=== PATIENT | male | born 1940 | race American Indian/Alaskan Native ===

== ENCOUNTER 2021-02-17 11:26 | Emergency (ER) | payer MEDICARE ==
--- NOTE | 2021-02-17 11:39 | Emergency Department Report ---
ED General Adult HPI - General Chief complaint: Fall Stated complaint: FALL/STANDING POSITION PUI?: No Time Seen by Provider: 02/17/21 11:35 Source: patient, EMS ( EMS documentation not available at time of chart dictatio n ), RN notes reviewed Mode of arrival: Stretcher Limitations: No Limitations - History of Present Illness Initial comments: The patient is a pleasant 81-year-old gentleman. This patient has a past medical history of high cholesterol, congestive heart failure, hypertension, chronic respiratory failure, lives at home with his family, and has home oxygen. The patient is brought to the hospital by emergency medical services for evaluation of left posterior scapular pain, and left lateral rib pain after mechanical fall. Patient reports that he typically ambulates with a walker. He reports that he was in the shower today, slipped, and fell onto his left lateral thorax, and left posterior scapula. He did not hit his head or neck. He complains of sharp pain in his left lateral chest wall/rib cage, and left posterior scapula. He denies headache, neck pain, vomiting, diaphoresis, abdominal pain, extremity weakness or numbness, urinary symptoms, diarrhea, new/different shortness of breath. The patient states the pain increases with palpation and range of motion. It decreases with rest. It decreases with acetaminophen, administered here in the emergency room. -: Sudden Location: back (Left posterior scapula. Left lateral rib cage) Radiation: non-radiation Consistency: constant Improves with: rest Worsens with: movement Associated Symptoms: denies other symptoms - Related Data Previous Rx's Medication Instructions Recorded Last Taken Type Acetaminophen [Non-Aspirin Extra 500 mg PO Q6HR PRN #30 tablet 02/17/21 Unknown Rx Strength] Allergies Allergy/AdvReac Type Severity Reaction Status Date / Time No Known Allergies Allergy Unverified 02/17/21 11:31 ED Review of Systems ROS: Stated complaint: FALL/STANDING POSITION Other details as noted in HPI Constitutional: denies: fever Eyes: denies: eye discharge ENT: denies: epistaxis Respiratory: shortness of breath (Chronic shortness of breath). denies: cough Cardiovascular: denies: chest pain (No anterior chest pain) Gastrointestinal: denies: abdominal pain Genitourinary: denies: dysuria Musculoskeletal: back pain, arthralgia, myalgia Neurological: denies: headache, weakness (Denies weakness) ED Past Medical Hx - Past Medical History Previous Medical History?: Yes Hx Congestive Heart Failure: Yes - Medications Home Medications: Home Medications Medication Instructions Recorded Confirmed Last Taken Type Acetaminophen [Non-Aspirin Extra 500 mg PO Q6HR PRN #30 tablet 02/17/21 Unknown Rx Strength] ED Physical Exam - General Limitations: No Limitations General appearance: alert, in no apparent distress - Head Head exam: Present: atraumatic, normocephalic - Eye Eye exam: Present: normal appearance, EOMI. Absent: nystagmus - ENT ENT exam: Present: normal exam, normal orophraynx, mucous membranes moist, normal external ear exam - Neck Neck exam: Present: normal inspection, full ROM. Absent: tenderness, meningismus - Respiratory Respiratory exam: Present: normal lung sounds bilaterally, chest wall tenderness (There is left lateral thoracic and rib cage tenderness). Absent: respiratory distress, wheezes, rales, rhonchi, stridor - Cardiovascular Cardiovascular Exam: Present: regular rate, normal rhythm, normal heart sounds. Absent: bradycardia, tachycardia, irregular rhythm, systolic murmur, diastolic m urmur, rubs, gallop - GI/Abdominal GI/Abdominal exam: Present: soft. Absent: distended, tenderness, guarding, rebound, rigid, pulsatile mass - Rectal Rectal exam: Present: deferred - Extremities Exam Extremities exam: Present: normal inspection (Left posterior scapular tenderness), full ROM, other (2+ pulses noted in the bilateral upper and lower extremities. There is no palpable cord. negative Homans sign. Muscular compartments are soft. The pelvis is stable.). Absent: pedal edema, calf tenderness - Back Exam Back exam: Present: normal inspection, tenderness (Left posterior scapular tenderness). Absent: CVA tenderness (R), paraspinal tenderness, vertebral tenderness - Neurological Exam Neurological exam: Present: alert, oriented X3, other (No facial droop. Tongue midline. Extraocular movements intact bilaterally. Facial sensation intact to light touch in V1, V2, V3 distribution bilaterally. 5 and a 5 strength in 4 extremities. Sensation intact to light touch in 4 extremities.). Absent: motor sensory deficit - Psychiatric Psychiatric exam: Present: normal affect, normal mood - Skin Skin exam: Present: warm, dry, intact, normal color. Absent: rash ED Course Vital Signs 02/17/21 02/17/21 02/17/21 11:28 12:04 13:44 Temperature 98.3 F Pulse Rate 63 52 L Respiratory 16 12 12 Rate Blood Pressure 136/60 124/53 [Right] O2 Sat by Pulse 100 100 Oximetry ED Medical Decision Making - Lab Data Vital Signs 02/17/21 02/17/21 02/17/21 11:28 12:04 13:44 Temperature 98.3 F Pulse Rate 63 52 L Respiratory 16 12 12 Rate Blood Pressure 136/60 124/53 [Right] O2 Sat by Pulse 100 100 Oximetry Lab Results 02/17/21 Range/Units Unknown Urine Color Yellow (Yellow) Urine Turbidity Clear (Clear) Urine pH 6.0 (5.0-7.0) Ur Specific Jacobson 1.010 (1.003-1.030) Urine Protein 30 mg/dl (Negative) mg/dL Urine Glucose (UA) Neg (Negative) mg/dL Urine Ketones Neg (Negative) mg/dL Urine Blood Sm (Negative) Urine Nitrite Neg (Negative) Urine Bilirubin Neg (Negative) Urine Urobilinogen < 2.0 (<2.0) mg/dL Ur Leukocyte Esterase Neg (Negative) Urine WBC (Auto) 1.0 (0.0-6.0) /HPF Urine RBC (Auto) 3.0 (0.0-6.0) /HPF U Epithel Cells (Auto) < 1.0 (0-13.0) /HPF Urine Mucus Few /HPF - Radiology Data Radiology results: pending, report reviewed, image reviewed CT OF THE CHEST WITHOUT CONTRAST INDICATION / CLINICAL INFORMATION: Fall with left rib and scapular pain. TECHNIQUE: All CT scans at this location are performed using CT dose reduction for ALARA by means of automated exposure control. COMPARISON: None available. FINDINGS: There is a small left pleural effusion. There is mild compressive atelectasis/consolidation in the adjacent left lower lobe. Minimal dependent atelectasis is present in the right posterior lung base. There is minimal pericardial effusion. The tracheobronchial tree is normal. There is no evidence of pneumothorax. There is no evidence of adenopathy. The visualized upper abdomen is unremarkable There is an acute fracture of the left seventh rib posterolaterally which is mildly displaced. The scapula is intact. IMPRESSION: 1. Acute, mildly displaced fracture of the left seventh rib. 2. Small left pleural effusion with mild associated compressive atelectasis/consolidation in the adjacent left lower lobe. 3. No pneumothorax. Signer Name: Dexter Juárez MD Signed: 02/17/2021 11:42 AM Workstation Name: [id number] CT head/brain wo con INDICATION / CLINICAL INFORMATION: 81 years Male; fall from standing, de-acceleration injury. TECHNIQUE: Routine CT head without contrast. All CT scans at this location are performed using CT dose reduction for ALARA by means of automated exposure control. COMPARISON: None. FINDINGS: BRAIN / INTRACRANIAL CONTENTS: No acute hemorrhage, mass effect, midline shift, hydrocephalus, or acute, large territorial infarct. Mild to moderate, diffuse cerebral and mild cerebellar atrophy. Moderate to marked degree of hippocampal atrophy suggested bilaterally. There are moderate to marked, confluent areas of decreased attenuation in the white matter of the cerebral hemispheres. These are nonspecific findings and may be related to microangiopathy (hypertension, diabetes, atherosclerosis), given the patient's age. It might be difficult to evaluate for small areas of ischemia without diffusion imaging by MRI. CRANIOCERVICAL JUNCTION: No significant abnormality. ORBITS: No significant abnormality of visualized orbits. SINUSES / MASTOIDS: Visualized paranasal sinuses and mastoid air cells are essentially clear. ADDITIONAL FINDINGS: Atherosclerotic disease is seen in the anterior circulation. IMPRESSION: 1. No focal mass, hemorrhage, hydrocephalus, or acute, large territorial infarct. Signer Name: Rony Ayers MD, III Signed: 02/17/2021 11:50 AM Workstation Name: [id number] - Medical Decision Making Differential diagnosis, including but not limited to: Mechanical slip and fall, scapula pain, strain, fracture, contusion, rib pain, strain, fracture, contusion, pulmonary contusion/pneumothorax, intracranial injury Assessment and plan: 81-year-old gentleman, who was afebrile, with reassuring vital signs, clinically sober, with a GCS of 15, who was in the shower, and fell onto his left side, hitting his left scapula, and left-sided rib cage. He is tender in the left scapular and left rib cage. Range of motion intact in the extremities, and the pelvis is stable. Has point tenderness in the left lateral rib cage, left posterior scapula. Given advanced age, D acceleration component, osteopenia, noncontrast CT scan of the brain is obtained, and shows no acute intracranial bleeding or findings. A noncontrast CT scan of the chest demonstrates an isolated left-sided seventh rib fracture. No other obvious injuries or fractures are identified. Do not clinically suspect pneumonia. The patient has home oxygen, and he is not significantly hypoxic at this time. Discussed radiology findings with interpreting radiologist. This is most likely compressive atelectasis. We do not clinically suspect pneumonia. This is very unlikely to be a pulmonary contusion based off her radiographic findings, and overall clinical appearance, as well as clinical history. Patient felt improved after Tylenol/acetaminophen. He is resting comfortably at this time, and eating a peanut butter and jelly sandwich. He is stating that he would like to be discharged, and go home. Have ordered incentive spirometry for this patient. He lives at home with family and he reports that he is reliable to return to the ER if he clinically deteriorates. Return precautions are reviewed. All questions answered. Critical care attestation.: If time is entered above; I have spent that time in minutes in the direct care of this critically ill patient, excluding procedure time. ED Disposition Clinical Impression: Pain of left scapula, Fracture of ribs, seven, Left-sided chest wall pain, Fall, Compressive atelectasis Disposition: 01 HOME / SELF CARE / HOMELESS Is pt being admited?: No Condition: Stable Instructions: Atelectasis, Adult, Rib Fracture, [id number], How to Use an Incentive Spirometer Additional Instructions: Pain typically gets worse before gets better after a mechanical fall. Patient had a CT scan of the brain today, which showed no acute intracranial injury. Patient had a CT scan of the chest today which demonstrated a left-sided rib fracture, and very small left-sided pleural effusion and/or compressive left- sided atelectasis (collapsed lung). Please take the pain medication as needed and directed. Please use the incentive spirometer as directed. Follow-up with a primary care doctor in 2 to 3 days. Please return to the emergency room right away with new pain, worsened pain, migration of pain, projectile vomiting, change in mental status, confusion, inability to tolerate liquid feeds, new, worsened or different symptoms not present on the initial emergency room evaluation. Please have your primary care doctor contact the medical records department to obtain copies of laboratory studies, radiology studies, and follow-up on nonemergent incidental findings. Referrals: DR EMPERATRIZ TAN [Other] - 3-5 Days
[2021-02-17] MEDS ORDERED: ACETAMINOPHEN 325 MG TAB PO ONE (11:47)
[2021-02-17 12:20] LABS: Bilirubin,Urine NEG (Negative); Blood,Urine SM (Negative); Color,Urine Yellow (Yellow); Mucus,Urine FEW /HPF; Urobilinogen,Urine < 2.0 mg/dL (<2.0)
--- NOTE | 2021-02-17 12:46 | Cat Scan Report ---
CT OF THE CHEST WITHOUT CONTRAST INDICATION / CLINICAL INFORMATION: Fall with left rib and scapular pain. TECHNIQUE: All CT scans at this location are performed using CT dose reduction for ALARA by means of automated exposure control. COMPARISON: None available. FINDINGS: There is a small left pleural effusion. There is mild compressive atelectasis/consolidation in the ad jacent left lower lobe. Minimal dependent atelectasis is present in the right posterior lung base. Th ere is minimal pericardial effusion. The tracheobronchial tree is normal. There is no evidence of pne umothorax. There is no evidence of adenopathy. The visualized upper abdomen is unremarkable There is an acute fracture of the left seventh rib posterolaterally which is mildly displaced. The sc apula is intact. IMPRESSION: 1. Acute, mildly displaced fracture of the left seventh rib. 2. Small left pleural effusion with mild associated compressive atelectasis/consolidation in the paige cent left lower lobe. 3. No pneumothorax. Signer Name: Dexter Juárez MD Signed: 02/17/2021 12:42 PM Workstation Name: [id number]
--- NOTE | 2021-02-17 12:54 | Cat Scan Report ---
CT head/brain wo con INDICATION / CLINICAL INFORMATION: 81 years Male; fall from standing, de-acceleration injury. TECHNIQUE: Routine CT head without contrast. All CT scans at this location are performed using CT dos e reduction for ALARA by means of automated exposure control. COMPARISON: None. FINDINGS: BRAIN / INTRACRANIAL CONTENTS: No acute hemorrhage, mass effect, midline shift, hydrocephalus, or acu te, large territorial infarct. Mild to moderate, diffuse cerebral and mild cerebellar atrophy. Moderate to marked degree of hippocam pal atrophy suggested bilaterally. There are moderate to marked, confluent areas of decreased attenuation in the white matter of the cer ebral hemispheres. These are nonspecific findings and may be related to microangiopathy (hypertension , diabetes, atherosclerosis), given the patient's age. It might be difficult to evaluate for small ar eas of ischemia without diffusion imaging by MRI. CRANIOCERVICAL JUNCTION: No significant abnormality. ORBITS: No significant abnormality of visualized orbits. SINUSES / MASTOIDS: Visualized paranasal sinuses and mastoid air cells are essentially clear. ADDITIONAL FINDINGS: Atherosclerotic disease is seen in the anterior circulation. IMPRESSION: 1. No focal mass, hemorrhage, hydrocephalus, or acute, large territorial infarct. Signer Name: Rony Ayers MD, III Signed: 02/17/2021 12:50 PM Workstation Name: [id number]
[2021-02-17 15:45] VITALS: BP 126/44
== END 2021-02-17 16:06 | disposition home or self-care (01) ==
LOC: ED 11:26
DX: S22.32XA Fracture of one rib, left side, initial encounter for closed fracture (principal); J98.11 Atelectasis; M25.512 Pain in left shoulder; I11.0 Hypertensive heart disease with heart failure; I50.9 Heart failure, unspecified; E78.00 Pure hypercholesterolemia, unspecified; Z79.899 Other long term (current) drug therapy; W18.39XA Other fall on same level, initial encounter; Y93.89 Activity, other specified; Y92.89 Other specified places as the place of occurrence of the external cause; Y99.8 Other external cause status
CPT/HCPCS: 70450; 71250; 81001; 99284